=== PATIENT | male | born 1950 | race Caucasian/White ===

== ENCOUNTER 2022-08-05 07:30 | Inpatient (IN) ==
[2022-08-05 10:49] LABS: BASOPHILS # (AUTO) 0.1 X10^3/uL (0.0-0.1); BASOPHILS % (AUTO) 0.7 % (0.2-1.0); EOSINOPHILS # (AUTO) 0.3 x10^3/uL (0.0-0.2); EOSINOPHILS % (AUTO) 3.9 % (0.9-2.9); HEMATOCRIT 43.5 % (42.0-54.0); HEMOGLOBIN 14.7 g/dL (13.5-18.0); LYMPHOCYTES # (AUTO) 1.6 X10^3/uL (1.3-2.9); LYMPHOCYTES % (AUTO) 20.6 % (21.0-51.0); MEAN CORPUSCULAR HEMOGLOBIN 30.6 pg (27.0-34.0); MEAN CORPUSCULAR HGB CONC 33.8 g/dL (33.0-35.0); MEAN CORPUSCULAR VOLUME 90.6 fL (80.0-100.0); MEAN PLATELET VOLUME 8.1 fL (7.4-11.0); MONOCYTES # (AUTO) 0.8 x10^3/uL (0.3-0.8); MONOCYTES % (AUTO) 10.4 % (0.0-13.0); NEUTROPHILS # (AUTO) 5.1 x10^3/uL (2.2-4.8); NEUTROPHILS % (AUTO) 64.4 % (42.0-75.0); RED CELL DISTRIBUTION WIDTH 14.1 % (11.6-16.5); WHITE BLOOD COUNT 7.9 X10^3/uL (3.6-10.0)
[2022-08-05] MEDS ORDERED: NS 1,000 ML IV 1,000 ML IV SCH (11:00)
[2022-08-05 11:04] LABS: ALANINE AMINOTRANSFERASE 58 Units/L (12-78); ALBUMIN 3.5 g/dL (3.4-5.0); ALKALINE PHOSPHATASE 116 Units/L (46-116); ASPARTATE AMINO TRANSFERASE 25 Units/L (15-37); BLOOD UREA NITROGEN 22 mg/dL (7-18); CALCIUM 9.5 mg/dL (8.5-10.1); CARBON DIOXIDE 32.1 mmol/L (21-32); CHLORIDE 103 mmol/L (98-107); CREATININE 1.31 mg/dL (0.70-1.30); SODIUM 138 mmol/L (136-145); TOTAL PROTEIN 7.3 g/dL (6.4-8.2); eGFR NON BLACK RACES 58 (>60)
--- NOTE | 2022-08-05 12:54 | RAD ---
HISTORYBowel obstructionSTUDYKUBCOMPARISONCT abdomen pelvis 07/27/2022FINDINGSThere is marked distension of the stomach even more prominent than on the CT abdomen pelvis 07/27/2022. Gastric outlet obstruction or duodenal obstruction must be excluded. The patient may benefit from nasogastric suction to decrease the possibility of aspiration. No small bowel or colon dilatation is identified. No abnormal masses or abnormal calcifications are identified. Regional skeleton is intact.IMPRESSIONSevere distension of stomach worsening when compared with the CT examination 07/27/2022. Gastric outlet obstruction or duodenal obstruction must be excluded. Additionally, the patient may benefit from nasogastric suction to decrease the possibility of aspiration.Electronically signed by: IMAN BARCENAS (Aug 05, 2022 12:52:40)
[2022-08-05 14:29] VITALS: BMI 28.0
[2022-08-05] MEDS: PROTONIX INJ 40 MG VIAL IVP SCH ×2 (15:34→21:07)
--- NOTE | 2022-08-05 16:03 | DR.PROGNOT ---
Hospital Progress Notes - Progress Note for Day of: Progress Note Date: 08/05/22 - Chief Complaint Chief Complaint: c/o bloating , abdominal pain , constipation , generalized fatigue , weakness . h/o pyloric sticture with obstruction required dilation 7 years ago . - Past Medical Family Social History Past Med/Fam/Surg Hx: No changes since H&P Allergies: Allergies No Known Drug Allergies Allergy (Verified 07/08/20 10:45) - Review Of Systems ROS: No change since H&P - Vital Signs Vital Signs: Temperature 99.7 F Pulse Rate [Right Brachial] 89 Respiratory Rate 20 Blood Pressure [Right Arm] 138/77 Blood Pressure [Left Arm] 164/88 Blood Pressure 164/88 O2 Sat by Pulse Oximetry 96 - Physical Exam Oriented: Normal Eyes: Normal Ear: Normal Nose: Normal Throat: Normal Respiratory: Normal Cardiovascular: Normal : Normal GI:Auscultation: Normal GI:Palpation: Normal GI: Tenderness: Diffuse (moderate distention with diffuse tenderness .. BS+ ) Speech Pattern: Clear, Appropriate - Laboratory and Diagnostics Result Diagrams: 08/05/22 10:40 08/05/22 10:40 Labs: Laboratory WBC 7.9 X10^3/uL (3.6-10.0) 08/05/22 10:40 RBC 4.80 X10^6/uL (4.7-6.0) 08/05/22 10:40 Hgb 14.7 g/dL (13.5-18.0) 08/05/22 10:40 Hct 43.5 % (42.0-54.0) 08/05/22 10:40 MCV 90.6 fL (80.0-100.0) 08/05/22 10:40 MCH 30.6 pg (27.0-34.0) 08/05/22 10:40 MCHC 33.8 g/dL (33.0-35.0) 08/05/22 10:40 RDW 14.1 % (11.6-16.5) 08/05/22 10:40 Plt Count 288 X10^3/uL (150.0-450.0) 08/05/22 10:40 MPV 8.1 fL (7.4-11.0) 08/05/22 10:40 Neut % (Auto) 64.4 % (42.0-75.0) 08/05/22 10:40 Lymph % (Auto) 20.6 % (21.0-51.0) L 08/05/22 10:40 [place] % (Auto) 10.4 % (0.0-13.0) 08/05/22 10:40 Eos % (Auto) 3.9 % (0.9-2.9) H 08/05/22 10:40 Baso % (Auto) 0.7 % (0.2-1.0) 08/05/22 10:40 Neut # (Auto) 5.1 x10^3/uL (2.2-4.8) H 08/05/22 10:40 Lymph # (Auto) 1.6 X10^3/uL (1.3-2.9) 08/05/22 10:40 [place] # (Auto) 0.8 x10^3/uL (0.3-0.8) 08/05/22 10:40 Eos # (Auto) 0.3 x10^3/uL (0.0-0.2) H 08/05/22 10:40 Baso # (Auto) 0.1 X10^3/uL (0.0-0.1) 08/05/22 10:40 Absolute Nucleated RBC 0.1 /100WBC 08/05/22 10:40 Sodium 138 mmol/L (136-145) 08/05/22 10:40 Corrected Sodium TNP 08/05/22 10:40 Potassium 4.5 mmol/L (3.5-5.1) 08/05/22 10:40 Chloride 103 mmol/L (98-107) 08/05/22 10:40 Carbon Dioxide 32.1 mmol/L (21-32) H 08/05/22 10:40 BUN 22 mg/dL (7-18) H 08/05/22 10:40 Creatinine 1.31 mg/dL (0.70-1.30) H 08/05/22 10:40 Est GFR (MDRD) Af Amer > 60 (>60) 08/05/22 10:40 Est GFR (MDRD) Non-Af 58 (>60) L 08/05/22 10:40 Glucose 101 mg/dL (65-99) H 08/05/22 10:40 Calcium 9.5 mg/dL (8.5-10.1) 08/05/22 10:40 Corrected Calcium TNP 08/05/22 10:40 Total Bilirubin 0.20 mg/dL (0.2-1.0) 08/05/22 10:40 AST 25 Units/L (15-37) 08/05/22 10:40 ALT 58 Units/L (12-78) 08/05/22 10:40 Alkaline Phosphatase 116 Units/L (46-116) 08/05/22 10:40 Total Protein 7.3 g/dL (6.4-8.2) 08/05/22 10:40 Albumin 3.5 g/dL (3.4-5.0) 08/05/22 10:40 Globulin 3.8 g/dL (2.5-4.5) 08/05/22 10:40 Albumin/Globulin Ratio 0.9 Ratio (1.1-2.1) L 08/05/22 10:40 - Assessment and Plan 2: gastric outlet obstruction . dehydration . NGT was inserted to LIS . increase IVF for hydration . EGD after gastric decompressin to avoid aspiration ..
[2022-08-05] MEDS: D5 1/2 NS 1,000 ML 1,000 ML IV SCH (16:18)
--- NOTE | 2022-08-05 16:36 | RAD ---
HISTORYNG TUBE PLACEMENT Relevant Clinical [id number]/26/2022 at 11:06 a.m..FINDINGS3:37 p.m.. Nasogastric tube has been placed and the stomach appears to be relatively collapsed compared to the earlier exam. The gas in the small and large bowel is grossly normal. No pathological soft tissue mass or calcification can be observed. The bony structures are grossly intact.IMPRESSIONInterval decompression of the stomach with adequate positioning of the nasogastric tube. The nasogastric tube could be advanced another 5 cm as the side port is near the GE junction.Electronically signed by: Sukhi Tillman (Aug 05, 2022 16:34:10)
[2022-08-05] MEDS: MORPHINE SULFATE INJ 2 MG INJ IVP PRN ×2 (19:45→23:25)
--- NOTE | 2022-08-05 22:03 | RAD ---
HISTORYNG Tube PlacementSTUDYKUBCOMPARISONOct2021 at 3:37 p.m.TECHNIQUEAP supine projection, 2 imagesFINDINGSGas and stool in non-distended colon.No gross free air.No abnormal calcifications.No acute osseous abnormality.Esophagogastric tube in place with the tip in the body of the stomach in the side port at the GE junction. No significant change in positioning when compared to the previous exam.IMPRESSION1. No acute intra-abdominal abnormality detected.2. Esophagogastric tube in place with the tip in the body of the stomach in the side port at the GE junction. No significant change in positioning when compared to the previous exam.Electronically signed by: Main Caldwell (Aug 05, 2022 22:02:08)
[2022-08-06] MEDS: D5 1/2 NS 1,000 ML 1,000 ML IV SCH ×3 (01:39→17:07)
--- NOTE | 2022-08-06 02:40 | RAD ---
PROCEDURE: Abdomen X-ray 1 View .HISTORY: NG tube adjustment.TECHNIQUE: AP supine abdomen view .COMPARISON: 08/05/2022 abdomen done at 9:48 p.m..TECHNICAL QUALITY: Satisfactory .FINDINGS:NG tube tips in good position in the body of the stomach.No dilated bowel loops.IMPRESSION:Good NG-tube placement.Electronically signed by: Martinez Fuentes (Aug 06, 2022 02:38:24)
[2022-08-06] MEDS: MORPHINE SULFATE INJ 2 MG INJ IVP PRN ×3 (03:38→16:57)
[2022-08-06 06:29] LABS: BASOPHILS # (AUTO) 0.1 X10^3/uL (0.0-0.1); BASOPHILS % (AUTO) 0.6 % (0.2-1.0); EOSINOPHILS # (AUTO) 0.3 x10^3/uL (0.0-0.2); EOSINOPHILS % (AUTO) 2.6 % (0.9-2.9); HEMATOCRIT 45.1 % (42.0-54.0); HEMOGLOBIN 15.3 g/dL (13.5-18.0); LYMPHOCYTES # (AUTO) 1.1 X10^3/uL (1.3-2.9); LYMPHOCYTES % (AUTO) 11.8 % (21.0-51.0); MEAN CORPUSCULAR VOLUME 91.2 fL (80.0-100.0); MEAN PLATELET VOLUME 9.2 fL (7.4-11.0); NEUTROPHILS # (AUTO) 7.3 x10^3/uL (2.2-4.8); RED BLOOD COUNT 4.94 X10^6/uL (4.7-6.0); RED CELL DISTRIBUTION WIDTH 14.3 % (11.6-16.5); WHITE BLOOD COUNT 9.7 X10^3/uL (3.6-10.0)
[2022-08-06 06:39] LABS: ALANINE AMINOTRANSFERASE 51 Units/L (12-78); ALBUMIN 3.4 g/dL (3.4-5.0); ALKALINE PHOSPHATASE 121 Units/L (46-116); ASPARTATE AMINO TRANSFERASE 21 Units/L (15-37); BLOOD UREA NITROGEN 14 mg/dL (7-18); CALCIUM 9.1 mg/dL (8.5-10.1); CHLORIDE 104 mmol/L (98-107); COR NA(FOR HYPERGLY) 137 mmol/L (136-145); CREATININE 1.15 mg/dL (0.70-1.30); SODIUM 137 mmol/L (136-145); TOTAL PROTEIN 7.4 g/dL (6.4-8.2); eGFR NON BLACK RACES > 60 (>60)
--- NOTE | 2022-08-06 08:49 | DR.UPDATE ---
H&P Update H&P Reviewed: Yes Any changes to H&P?: Yes Changes noted:: WAS A DIRECT ADMISSION FROM THE OFFICE DUE TO COMPLAINTS OF ABDOMINAL PAIN, NAUSEA, AND ABNORMAL ABDOMEN/PELVIS CT. AN ABDOMEN/PELVIS CT WITH CONTRAST WAS OBTAINED ON 07/27/22. IT REVEALED MODERATE DISTENTION OF THE STOMACHE AND THE 1ST AND 2ND PORTIONS OF THE DUODENUM WITH ABRUPT TRANSITION TO THE COLLAPSED 3RD PORTION OF THE DUODENUM WITH MILD SURROUNDING INFLAMMATORY CHANGES. NO MASS WAS CLEARTLY SEEN. NO OTHER SIGNIFICANT ABNORAMLITIES OF THE SMALL BOWEL OR COLON WERE SEEN. THE APPENDIX WAS UNREMARKABLE. MIDGUT VOLVULUS SUGGESTED. CT SUGGESTED THAT CORRELATION WITH ENDOSCOPY MAY BE HELPFUL. ON ARRIVAL TO THE HOSPITAL, VITALS WERE: 97.8-92-20-97%-129/88. LABS WERE OBTAINED. WBC 7.9, RBC 4.80, HGB 14.7, HCT 43.5, PLT COUNT 288, SODIUM 138, POTASSIUM 4.5, CHLORIDE 103, CARBON DIOXIDE 32.1, BUN 22, CREATININE 1.31, GLUCOSE 101, CALCIUM 9.5, TOTAL BILI 0.20, AST 25, ALT 58, ALK PHOS 116, TOTAL PROTEIN 7.3, ALBUMIN 3.5. KUB WAS OBTAINED AND REVEALED: Severe distension of stomach worsening when compared with the CT examination 07/27/2022. Gastric outlet obstruction or duodenal obstruction must be excluded. Additionally, the patient may benefit from nasogastric suction to decrease the possibility of aspiration. WAS CONSULTED. HE ORDERED FOR A NG TUBE TO BE PLACED AND PLANS FOR EGD AFTER GASTRIC DECOMPRESSION TO AVOID ASPIRATION. WE ARE IN AGREEMENT WITH PLANS. HE WAS STARTED ON D51/2 NS AT 125 ML/HR, MORPHINE 1-2MG IV Q4H PRN, PROTONIX 40MG IV BID. WE WILL HOLD HIM NPO. OTHERWISE, WE PLAN TO FOLLOW-UP WITH AM LABS AND REPEAT KUB AND CONTINUE TO MONITOR. TIME SPENT ON CLINICAL ASSESSMENT, REVIWING LABS AND IMAGING, DECISION MAKING, AND DOCUMENTATION GREATER THAN 75 MINUTES. Patient was examined?: Yes
[2022-08-06] MEDS ORDERED: LOVENOX INJ 40 MG SYR SC SCH (09:00)
[2022-08-06] MEDS: PROTONIX INJ 40 MG VIAL IVP SCH (09:26)
--- NOTE | 2022-08-06 12:21 | PCM.PROG ---
Progress Note - Progress Note for Day of Date of Exam: 08/06/22 - Subjective Subjective: WAS ADMITTED FOR TREATMENT OF GASTRIC OUTLET OBSTRUCTION, ABDOMINAL PAIN, AND NAUSEA. ABDOMEN/PELVIS CT WITH CONTRAST SUGGESTED A MIDGUT VOLVULUS. AN NG TUBE WAS INSERTED ON ADMISSION. TODAY, PATIENT IS ALERT AND ORIENTED, LYING IN BED ON MORNING ROUNDS. HE CONTINUES WITH MILD, INTERMITTENT ABDOMINAL PAIN, BUT REPORTS IMPROVEMENT IN SYMPTOMS SINCE ADMISSION. ON EXAMINATION, NG TUBE NOTED TO INTERMITTENT SUCTION. HEART IS REGULAR IN RATE AND RHYTHM. BILATERAL LUNGS CLEAR TO AUSCULTATION. ABDOMEN IS DISTENDED AND NOTED WITH DIFFUSE TENDERNESS. NO UPPER OR LOWER EXTREMITY EDEMA NOTED. HIS VITALS THIS MORNING ARE: 98.9-80-20-97%-156/93. LABS WERE OBTAINED. WBC 9.7, RBC 4.94, HGB 15.3, HCT 45.1, PLT COUNT 283, SODIUM 137, POTASSIUM 4.3, CHLORIDE 104, BUN 14, CREATININE 1.15, GLUCOSE 119, CALCIUM 9.1, AST 21, ALT 51, ALK PHOS 121, TOTAL PROTEIN 7.4, ALBUMIN 3.4. CONSULTED AND PLANS FOR EGD AFTER GASTRIC DECOMPRESSION FOR 24 HOURS TO AVOID ASPIRATION. WE ARE IN A GREEMENT WITH PLANS. HE WAS STARTED ON D51/2 NS AT 125 ML/HR, MORPHINE 1-2MG IV Q4H PRN, PROTONIX 40MG IV BID. WE WILL CONTIUE TO HOLD HIM NPO. OTHERWISE, WE PLAN TO FOLLOW-UP WITH AM LABS AND CONTINUE TO MONITOR. TIME SPENT ON CLINICAL ASSESSMENT, REVIWING LABS AND IMAGING, DECISION MAKING, AND DOCUMENTATION GREATER THAN 45 MINUTES. - Past Medical Family Social History Past Med/Fam/Surg Hx: No changes since H&P Allergies: Allergies No Known Drug Allergies Allergy (Verified 07/08/20 10:45) - Review of Systems ROS: No change since H&P - Vital Signs and I&O's Vital Signs: Temperature 99.0 F Pulse Rate [Right Brachial] 89 Respiratory Rate 20 Blood Pressure [Right Arm] 149/80 Blood Pressure [Left Arm] 164/88 Blood Pressure 164/88 O2 Sat by Pulse Oximetry 97 Intake and Output: Intake & Output 08/04/22 08/05/22 08/06/22 08/07/22 11:59 11:59 11:59 11:59 Intake Total 1903 / 1903 Output Total 1750 / 175 Balance 153 / 153 - Physical Exam Oriented: Normal Eyes: Normal Ear: Normal Nose: Normal Throat: Normal Respiratory: Normal Cardiovascular: Normal : Normal Auscultation: Bowel Sounds: Normal Palpation: Normal Tenderness: Diffuse (moderate distention with diffuse tenderness .. BS+ ) Skin: Normal Musculoskeletal: Normal Psychiatric: Normal Mood Description: Calm Affect: Normal Speech Pattern: Clear, Appropriate - Laboratory and Diagnostics Result Diagrams: 08/06/22 05:13 08/06/22 05:13 Labs: Laboratory WBC 9.7 X10^3/uL (3.6-10.0) 08/06/22 05:13 RBC 4.94 X10^6/uL (4.7-6.0) 08/06/22 05:13 Hgb 15.3 g/dL (13.5-18.0) 08/06/22 05:13 Hct 45.1 % (42.0-54.0) 08/06/22 05:13 MCV 91.2 fL (80.0-100.0) 08/06/22 05:13 MCH 31.0 pg (27.0-34.0) 08/06/22 05:13 MCHC 34.0 g/dL (33.0-35.0) 08/06/22 05:13 RDW 14.3 % (11.6-16.5) 08/06/22 05:13 Plt Count 283 X10^3/uL (150.0-450.0) 08/06/22 05:13 MPV 9.2 fL (7.4-11.0) 08/06/22 05:13 Neut % (Auto) 75.0 % (42.0-75.0) 08/06/22 05:13 Lymph % (Auto) 11.8 % (21.0-51.0) L 08/06/22 05:13 [place] % (Auto) 10.0 % (0.0-13.0) 08/06/22 05:13 Eos % (Auto) 2.6 % (0.9-2.9) 08/06/22 05:13 Baso % (Auto) 0.6 % (0.2-1.0) 08/06/22 05:13 Neut # (Auto) 7.3 x10^3/uL (2.2-4.8) H 08/06/22 05:13 Lymph # (Auto) 1.1 X10^3/uL (1.3-2.9) L 08/06/22 05:13 [place] # (Auto) 1.0 x10^3/uL (0.3-0.8) H 08/06/22 05:13 Eos # (Auto) 0.3 x10^3/uL (0.0-0.2) H 08/06/22 05:13 Baso # (Auto) 0.1 X10^3/uL (0.0-0.1) 08/06/22 05:13 Absolute Nucleated RBC 0.1 /100WBC 08/06/22 05:13 Sodium 137 mmol/L (136-145) 08/06/22 05:13 Corrected Sodium 137 mmol/L (136-145) 08/06/22 05:13 Potassium 4.3 mmol/L (3.5-5.1) 08/06/22 05:13 Chloride 104 mmol/L (98-107) 08/06/22 05:13 Carbon Dioxide 24.0 mmol/L (21-32) 08/06/22 05:13 BUN 14 mg/dL (7-18) 08/06/22 05:13 Creatinine 1.15 mg/dL (0.70-1.30) 08/06/22 05:13 Est GFR (MDRD) Af Amer > 60 (>60) 08/06/22 05:13 Est GFR (MDRD) Non-Af > 60 (>60) 08/06/22 05:13 Glucose 119 mg/dL (65-99) H 08/06/22 05:13 Calcium 9.1 mg/dL (8.5-10.1) 08/06/22 05:13 Corrected Calcium TNP 08/06/22 05:13 Total Bilirubin 0.40 mg/dL (0.2-1.0) 08/06/22 05:13 AST 21 Units/L (15-37) 08/06/22 05:13 ALT 51 Units/L (12-78) 08/06/22 05:13 Alkaline Phosphatase 121 Units/L (46-116) H 08/06/22 05:13 Total Protein 7.4 g/dL (6.4-8.2) 08/06/22 05:13 Albumin 3.4 g/dL (3.4-5.0) 08/06/22 05:13 Globulin 4.0 g/dL (2.5-4.5) 08/06/22 05:13 Albumin/Globulin Ratio 0.9 Ratio (1.1-2.1) L 08/06/22 05:13 - Plan (1) Gastric outlet obstruction Status: Acute Plan: NPO, NG TUBE, D51/2 NS AT 125 ML/HR, MORPHINE 1-2MG IV Q4H PRN, PROTONIX 40MG IV BID. (2) Volvulus Status: Acute (3) Abdominal pain Status: Acute Qualifiers: Abdominal location: generalized Qualified Code(s): R10.84 - Generalized abdominal pain (4) Nausea Status: Acute
--- NOTE | 2022-08-06 13:09 | RAD ---
HISTORYAbdominal [id number]/26/2022 r.br.br free air. There is not an abnormally large amount of stool in the colon. No significant abnormal calcification is seen. The bones are unremarkable.The enteric tube is in the upper left abdomen. At this location it is most likely in the stomach.IMPRESSION1. No significant abnormalityElectronically signed by: Jorden Cordon (Aug 06, 2022 13:07:25)
[2022-08-06] MEDS ORDERED: DIPRIVAN VIAL 20 ML ONE (14:13)
[2022-08-06] MEDS ORDERED: D5 LR 1,000 ML 1,000 ML IV ONE (14:36)
[2022-08-06] MEDS ORDERED: VERSED ONE (14:48)
[2022-08-06] MEDS ORDERED: CARAFATE PO SCH (16:30)
[2022-08-06 16:37] VITALS: BP 135/90
== END 2022-08-06 17:45 | disposition home or self-care (01) | DRG 392 ==
LOC: MED/SURG → OBSVTOIN 09:53
PROVIDERS: ADMIT Internal Medicine; ATTEND Internal Medicine
DX: K31.1 Adult hypertrophic pyloric stenosis; E78.5 Hyperlipidemia, unspecified; R10.84 Generalized abdominal pain; R11.2 Nausea with vomiting, unspecified; K31.0 Acute dilatation of stomach; K29.00 Acute gastritis without bleeding; K21.9 Gastro-esophageal reflux disease without esophagitis; K31.5 Obstruction of duodenum; E86.0 Dehydration; I10 Essential (primary) hypertension